=== PATIENT | female | born 1955 ===

== ENCOUNTER → 2016-11-30 | Day surgery (SDC) | payer OTHER ==
[~2016-11-30] VITALS: Ht 149.9 cm; Wt 76.2 kg
[~2016-11-30] MED LIST: 0.9% Sodium Chloride 1,000 ML IV SCH; ATEN25TA PO; CHLO500T24 PO; HYDR-3740 PO; IBUP-1827 PO; LOVA20TA PO; OMEP20CA11 PO; PREG50CA PO; Sodium Chloride LOK Flush 10 mL Syringe IV PRN; TRAM-14 PO; TRAZ150T72 PO; fentaNYL-PF 50 mCg/mL 2 mL Inj IVPUSH PRN
[2016-11-30 07:47] VITALS: BP 100/56; PULSE 70; RESP 12; O2SAT 98
[2016-11-30 08:44] VITALS: BP 84/40; PULSE 70; RESP 12
[2016-11-30 08:56] VITALS: BP 95/52; PULSE 62; RESP 12; O2SAT 98
[2016-11-30 09:06] VITALS: BP 102/50; PULSE 59; RESP 12; O2SAT 99
--- NOTE | 2016-11-30 09:25 | ENDO ---
[address] [address] ENDOSCOPY PROCEDURE PATIENT: ADAM ALEJANDRO : 1955 MR#: [id number] ADMIT: 11/30/2016 JOB ID: [id number] DATE OF SERVICE: 11/30/2016 PREOPERATIVE DIAGNOSIS(ES): 1. Gastroesophageal reflux disease. 2. Family history of colon cancer. POSTOPERATIVE DIAGNOSIS(ES): 1. Small hiatal hernia. 2. Diverticulosis. OPERATION: 1. Upper endoscopy with biopsy. 2. Colonoscopy into terminal ileum. SURGEON: Luke Walden MD. INDICATIONS: The patient is a 61-year-old female who has symptoms of gastroesophageal reflux but also has a family history of colon cancer (mother). After discussing options with the patient, it was elected to proceed with an upper endoscopy and a colonoscopy. FINDINGS: 1. Esophagus. The esophagus was grossly normal down to the GE junction, which was at 37 cm from the incisors. The transition from esophageal the gastric mucosa was a little irregular. There was no gross evidence of esophagitis or Birch's or neoplasia. There was no ulceration. There were no strictures. There was no Schatzki ring. 2. Stomach. The cardia revealed a Hill II flap valve. The fundus, body, and antrum of the stomach were grossly normal. Biopsies of the antrum were obtained for H. pylori. 3. Pylorus normal. 4. Duodenum into the third portion of the duodenum normal. 5. Colon and rectum: Scattered mild left-sided diverticulosis. No polyps. Limited view of terminal ileum normal. DESCRIPTION OF PROCEDURE: The procedure and sedation plan was discussed with the patient and nursing staff, and a procedural time-out was held. She received 6 mg of Versed and 125 mcg of fentanyl. She gargled viscous Xylocaine. The Olympus GIF-H180J video endoscope was passed transorally, advanced into the third portion of the duodenum and was withdrawn with retroflex views of the cardia obtained. Biopsies of the antrum and of the GE junction were obtained. She was repositioned. A digital rectal exam was performed. The Olympus PCF-H180AL video colonoscope was passed transanally. I got into the cecum and my actual first realization that I got into the cecum was that I was looking at the mucosa of the terminal ileum. This was normal. The scope was then withdrawn over 7 minutes 14 seconds. I saw no polyps. She had a good to excellent prep. Retroflexed views of the rectum were normal. IMPRESSION: 1. Small hiatal hernia. 2. Diverticulosis. RECOMMENDATIONS: She will return to my office for discussion of results but she needs a repeat colonoscopy in five years because of her family history of colon cancer.
--- NOTE | 2016-12-04 16:57 | PATH ---
SURGICAL PATHOLOGY Attending Physician:Steven Siddiqi CASE STATUS: Signed Out PATIENT NAME: ADAM ALEJANDRO PID: [id number] : 1955 DATE COLLECTED:11/30/2016 15:23 SPECIMEN: 1: Stomach, Antrum, Biopsy 2: Esophagus, Biopsy CLINICAL HISTORY: 1). ANTRUM BIOPSIES (RULE OUT H.PYLORI) 2). GASTRO-ESOPHAGEAL JUNCTION BIOPSIES FINAL DIAGNOSIS: 1. Antrum, Biopsies (Rule out H. pylori): Gastric body-type mucosa with no diagnostic abnormality. Negative for Helicobacter pylori microorganisms by immunohistochemistry. Negative for neutrophilic inflammation. Negative for intestinal metaplasia. Negative for dysplasia and malignancy. 2. Gastroesophageal Junction Biopsies: Squamocolumnar junctional mucosa with moderate chronic inflammation. Negative for intestinal metaplasia (by Alcian blue stain). Negative for dysplasia and malignancy. Additional deeper levels examined. ICD10: K29.7 GROSS DESCRIPTION: The specimen is received in two formalin filled containers labeled with the patient's name. 1). The specimen is labeled "antrum" and consists of 3 portions of tissue which aggregate to zero and 0.3 x 0.2 x 0.2 CM. The specimen is entirely submitted in cassette 1A. 2). The specimen is labeled " GEJ " and consists of 3 portions of tissue which aggregate to 0.3 x 0.3 x 0.2 CM. The specimen is entirely submitted in cassette 2A. Then one MICRO DESCRIPTION: An immunohistochemical stain was performed to evaluate for Helicobacter pylori microorganisms. The control stain showed appropriate reactivity. * This test was developed and its performance characteristics determined by [facility]. It has not been cleared or approved by the U.[place]. Food and Drug Administration. The FDA has determined that such clearance or approval is not necessary. This test is used for clinical purposes. It should not be regarded as investigational or for research. An Alcian blue stain was ordered to evaluate for intestinal metaplasia. The stain shows non-specific staining and the biopsy is negative for intestinal metaplasia. Control stains demonstrate appropriate reactivity. ICD-9 CODES: CPT CODES: 1: 43154, 24386 2: 91601, 51293 Electronically Signed Out Anuj Chapman MD [facility] [address] [place] [address], [place] [address] Technical component performed at [facility], [address], [place], [address]
== END | disposition home or self-care (01) ==
LOC: END 00:50
PROVIDERS: ATTEND Surgery
DX: Z12.11 Encounter for screening for malignant neoplasm of colon (principal); Z80.0 Family history of malignant neoplasm of digestive organs; Z86.010 Personal history of colon polyps; K57.30 Diverticulosis of large intestine without perforation or abscess without bleeding; K44.9 Diaphragmatic hernia without obstruction or gangrene; K29.70 Gastritis, unspecified, without bleeding; K21.9 Gastro-esophageal reflux disease without esophagitis; Z87.891 Personal history of nicotine dependence
CPT/HCPCS: 43239; 99153; G0105; G0500; J2250; J3010; J7030